=== PATIENT | female | born 1955 | race Caucasian/White ===

== ENCOUNTER 2017-01-10 14:50 | Emergency (ER) | payer OTHER ==
[~2017-01-10] VITALS: Ht 167.6 cm; Wt 89.0 kg
[~2017-01-10 14:50] MED LIST: BACL10TA PO; METO25 PO; PERC10TA27 PO
[2017-01-10 14:57] VITALS: BP 176/100; PULSE 72; RESP 16; TEMP 99.2; O2SAT 93
--- NOTE | 2017-01-10 15:10 | PD ---
HPI Chief Complaint: Bite or Sting Time Seen by Provider: 15:02 Travel History International Travel<30 days: No Contact w/Intl Traveler<30days: No Traveled to known affect area: No History of Present Illness HPI This is a 61-year-old female who presents to the emergency department having sustained a cat bite to her right forearm immediately prior to arrival. She was grooming a cat at the time. The cat has received rabies vaccines in the past but they are overdue. Patient has noticed that the area has become increasingly red since she was bit, constant, moderate severity associated with burning and pain in her right forearm. PFSH Past Medical History Arthritis: Yes Anxiety: Yes Depression: Yes Heart Rhythm Problems: No Cancer: No Cardiovascular Problems: No High Cholesterol: Yes Chest Pain: No Congestive Heart Failure: No Diminished Hearing: No Endocrine: No GERD: Yes (takes prevacid to relieve ) Genitourinary: No Hiatal Hernia: No Hypertension: Yes Immune Disorder: No Musculoskeletal: No Neurologic: No Psychiatric: No Reproductive: No Respiratory: No Ulcer: No Past Surgical History Abdominal Surgery: No AICD: No Arteriovenous Shunt: No Cardiac Surgery: No Section: Yes Ear Surgery: No Endocrine Surgery: No Eye Surgery: No Genitourinary Surgery: No Gynecologic Surgery: Yes () Insulin Pump: No Joint Replacement: No Oral Surgery: No Thoracic Surgery: No Social History Alcohol Use: No Tobacco Use: No Substance Use: No Allergies-Medications (Allergen,Severity, Reaction): Coded Allergies: Penicillin (Verified Allergy, Intermediate, ITCH, 01/10/17) Reported Meds & Prescriptions Reported Meds & Active Scripts Active Reported Metoprolol Tartrate 25 Mg Tab 25 Mg PO BID Review of Systems General / Constitutional: No: Fever, Chills Gastrointestinal: No: Nausea, Vomiting Physical Exam Narrative GENERAL:Well appearing, no acute distress SKIN: 4 cm area of erythema and warmth associated with 2 puncture wounds on the volar aspect of the right forearm HEAD: Atraumatic. Normocephalic. EYES: Pupils equal and round. No injection or drainage. ENT: Moist mucous membranes NECK: Trachea midline. CARDIOVASCULAR: Regular rate and rhythm. No murmur appreciated. 2+ right radial pulse with normal capillary refill. RESPIRATORY: Clear to auscultation. Breath sounds equal bilaterally. GASTROINTESTINAL: Abdomen soft, non-tender, nondistended. MUSCULOSKELETAL: No obvious deformities. NEUROLOGICAL: Awake and alert. No obvious cranial nerve deficits. Moving all extremities. PSYCHIATRIC: Appropriate mood and affect; insight and judgment normal. Data Data Last Documented VS Vital Signs Date Time Temp Pulse Resp B/P Pulse Ox O2 Delivery O2 Flow Rate FiO2 01/10/17 14:57 99.2 72 16 176/100 93 Orders Forearm (2vws) (01/10/17 ) MDM Medical Decision Making Medical Screen Exam Complete: Yes Emergency Medical Condition: Yes Interpretation(s) temperature 99.2, hypertension xray: no foreign body Differential Diagnosis cat bite, cellulitis, foreign body Narrative Course This is a 61-year-old female who presents to the emergency department having been bit by a cat one hour ago. She has evidence of a local reaction around the puncture wounds. This was marked with a marker. She is otherwise well- appearing and has a normal neurovascular exam. X-ray was negative for foreign body. Patient will be discharged on Augmentin and was told to follow her wound closely for infection. Diagnosis Primary Impression: Cat bite Qualified Code: W55.01XA - Cat bite, initial encounter Patient Instructions: General Instructions Additional Instructions: If you develop fever, increasing redness, warmth, or spreading of your infection , or severe pain return to the emergency department immediately as you may require antibiotics through your IV. Complete your course of antibiotics as prescribed. Med/Other Pt SpecificInfo: Prescription(s) given Scripts Metronidazole (Flagyl)500 Mg Nsg203 Mg PO TID 10 Days Ref 0 Prov:Jammie Murry MD 01/10/17 Doxycycline Hyclate 100 Mg Cop663 Mg PO BID #20 CAP Ref 0 Prov:Jammie Murry MD 01/10/17 Disposition: 01 DISCHARGE HOME Condition: Stable Jammie Murry MD Jan 10, 2017 15:10
[2017-01-10] MEDS ORDERED: METO25TA3 PO (15:24)
--- NOTE | 2017-01-10 15:27 | RADHPO ---
EXAM DATE/TIME: 01/10/2017 15:09 [facility] COMPARISON: No previous studies available for comparison. INDICATIONS : Cat bite to right forearm, multiple puncture wounds MEDICAL HISTORY : None. SURGICAL HISTORY : None. ENCOUNTER: Initial ACUITY: 1 day PAIN SCORE: 9/10 LOCATION: Right forearm FINDINGS: There is focal induration of the subcutaneous fat and some thickening of the subcutaneous layer in th e distal volar forearm. No radiopaque foreign bodies seen. No definite evidence of soft tissue gas. The radius and ulna are intact. CONCLUSION: Volar soft tissue thickening. No radiopaque foreign body seen. Jacky Dennison MD on January 10, 2017 at 15:24 Board Certified Radiologist. This report was verified electronically.
[2017-01-10] MEDS ORDERED: METR-1 PO (15:52)
[2017-01-10] MEDS ORDERED: DOXY100C PO (15:52)
== END 2017-01-10 16:10 | disposition home or self-care (01) ==
LOC: PHED 14:50
DX: S51.851A Open bite of right forearm, initial encounter (principal); I10 Essential (primary) hypertension; E78.00 Pure hypercholesterolemia, unspecified; K21.9 Gastro-esophageal reflux disease without esophagitis; F41.9 Anxiety disorder, unspecified; F32.9 Major depressive disorder, single episode, unspecified; M19.90 Unspecified osteoarthritis, unspecified site; W55.01XA Bitten by cat, initial encounter; Y93.K3 Activity, grooming and shearing an animal
CPT/HCPCS: 73090; 99283